=== PATIENT | female | born 1955 | race Caucasian/White ===

== ENCOUNTER → 2022-07-04 | Day surgery (SDC) | payer OTHER | END | disposition home or self-care (01) | LOC: JMAMMO-SUR 10:05 | PROVIDERS: ATTEND Physician Assistant | PROC: 0H9T3ZX Drainage of Right Breast, Percutaneous Approach, Diagnostic (ICD-10-PCS; principal; 2022-07-04) | DX: C50.911 Malignant neoplasm of unspecified site of right female breast (principal); Z17.0 Estrogen receptor positive status [ER+] | CPT/HCPCS: 19083; 77065-TC; 87899; 88305-TC; A4648 ==